=== PATIENT | female | born 1975 | race Hispanic/Latino ===

== ENCOUNTER 2023-04-26 16:44 | Emergency (ER) | payer OTHER ==
[2023-04-26] MEDS ORDERED: ASPIRIN 81 MG CHEWABLE TABLET ONE (17:55)
[2023-04-26] MEDS ORDERED: HYDROCODONE/APAP 5/325 MG TAB ONE (17:55)
--- NOTE | 2023-04-26 19:12 | RAD REPORT ---
EXAM DESCRIPTION: CT - Spine Lumbar Wo Con - 04/26/2023 6:16 pm CLINICAL HISTORY: Radiculopathy. RADICULOPATHY COMPARISON: No comparisons TECHNIQUE: Axial noncontrast CT imaging of the lumbar spine was performed with coronal and sagittal re-formatted images. All CT scans are performed using dose optimization technique as appropriate and may include automated exposure control or mA/KV adjustment according to patient size. FINDINGS: No acute lumbar spine fracture seen. No aggressive marrow pattern or malalignment. Small s clerotic lesions within both iliac wings, not exceeding 1 cm, indeterminate and could represent small bone islands its although possibility of small metastatic lesions cannot be entirely excluded. Paraspinal tissues are normal in thickness. No paraspinal abscess or hematoma seen. Intervertebral disc disease assessment is inherently limited by CT. Within these limitations, no high -grade canal stenosis suspected. Mild bilateral facet degenerative changes. No significant bony beto inal stenosis. Colonic diverticulosis. Status post cholecystectomy. IMPRESSION: No acute osseus abnormality. Small sclerotic lesions within both iliac wings, not exceeding 1 cm, indeterminate and could represen t small bone islands, although possibility of small metastatic lesions cannot be entirely excluded. P lease correlate with prior imaging if available. Incidental findings as above.
--- NOTE | 2023-04-26 19:16 | RAD REPORT ---
EXAM DESCRIPTION: US - Extrem Venous W Compress Anton - 04/26/2023 5:42 pm CLINICAL HISTORY: Pain. Rule out DVT COMPARISON: None. TECHNIQUE: Real-time sonographic evaluation of the bilateral lower extremity deep venous systems was performed. FINDINGS: Normal compressibility, flow augmentation, phasic flow and spontaneous flow is identified in both the left and right lower extremity deep venous systems. No intraluminal filling defects seen. IMPRESSION: No evidence of DVT in either lower extremity.
--- NOTE | 2023-04-26 20:48 | EDPHYS ---
Physician Documentation [facility] Name: Keke Amado Age: 47 yrs Sex: Female : 1975 Arrival Date: 04/26/2023 Time: 16:44 Bed 7 Private MD: ED Physician Paulie Sutherland HPI: 04/26 17:47 This 47 yrs old Female presents to ER via Ambulatory with complaints of Leg snw Pain. 17:47 The patient presents with pain, that is acute. The complaints affect the right snw hamstring and right obando and posterior aspect of right knee. Onset: The symptoms/episode began/occurred 1 month(s) ago, and became worse 1 week(s) ago. Treatment prior to arrival includes: no previous treatment. Severity of symptoms: At their worst the symptoms were moderate, severe. The patient has not experienced similar symptoms in the past. The patient has not recently seen a physician. recent flights, sedentary. Historical: - Allergies: 16:57 No Known Allergies; hb - Home Meds: 16:57 Ozempic subcutaneous [Active]; hb - PMHx: 16:57 None; hb - PSHx: 16:57 Cholecystectomy; Appendectomy; Partial Hysterectomy; hb - Immunization history:: Adult Immunizations up to date. - Social history:: Smoking status: Patient denies any tobacco usage or history of. ROS: 17:30 Constitutional: Negative for fever, chills, and weight loss, Eyes: Negative for injury, snw pain, redness, and discharge, ENT: Negative for injury, pain, and discharge, Neck: Negative for injury, pain, and swelling, Cardiovascular: Negative for chest pain, palpitations, and edema, Respiratory: Negative for shortness of breath, cough, wheezing, and pleuritic chest pain, Abdomen/GI: Negative for abdominal pain, nausea, vomiting, diarrhea, and constipation, Back: Negative for injury and pain, : Negative for injury, bleeding, discharge, and swelling, Neuro: Negative for headache, weakness, numbness, tingling, and seizure, Psych: Negative for depression, anxiety, suicide ideation, homicidal ideation, and hallucinations, 17:30 MS/extremity: Positive for pain, tenderness, Exam: 17:27 Constitutional: This is a well developed, well nourished patient who is awake, alert, snw and in no acute distress. Head/Face: Normocephalic, atraumatic. Eyes: Pupils equal round and reactive to light, extra-ocular motions intact. Lids and lashes normal. Conjunctiva and sclera are non-icteric and not injected. Cornea within normal limits. Periorbital areas with no swelling, redness, or edema. ENT: Nares patent. No nasal discharge, no septal abnormalities noted. Tympanic membranes are normal and external auditory canals are clear. Oropharynx with no redness, swelling, or masses, exudates, or evidence of obstruction, uvula midline. Mucous membranes moist. Neck: Trachea midline, no thyromegaly or masses palpated, and no cervical lymphadenopathy. Supple, full range of motion without nuchal rigidity, or vertebral point tenderness. No Meningismus. Chest/axilla: Normal chest wall appearance and motion. Nontender with no deformity. No lesions are appreciated. Cardiovascular: Regular rate and rhythm with a normal S1 and S2. No gallops, murmurs, or rubs. Normal PMI, no JVD. No pulse deficits. up to bedside and HR up to 108 Respiratory: Lungs have equal breath sounds bilaterally, clear to auscultation and percussion. No rales, rhonchi or wheezes noted. No increased work of breathing, no retractions or nasal flaring. Abdomen/GI: Soft, non-tender, with normal bowel sounds. No distension or tympany. No guarding or rebound. No evidence of tenderness throughout. Back: No spinal tenderness. No costovertebral tenderness. Full range of motion. Neuro: Awake and alert, GCS 15, oriented to person, place, time, and situation. Cranial nerves II-XII grossly intact. Motor strength 5/5 in all extremities. Sensory grossly intact. Cerebellar exam normal. Normal gait. Psych: Awake, alert, with orientation to person, place and time. Behavior, mood, and affect are within normal limits. 17:27 Musculoskeletal/extremity: ROM: intact in all extremities, Circulation is intact in all extremities. hyperesthesias to posterior thigh and medial right ankle 17:27 Skin: Appearance: normal except for affected area, induration, that is mild is noted, that is moderate is noted, located on the right hamstring, posterior aspect of right knee, right obando and anterior aspect of right ankle, Other varicose cords noted, posterior upper thigh with tenderness to palpation, Vital Signs: 16:55 BP 135 / 89; Pulse 93; Resp 16; Temp 98.8(O); Pulse Ox 99% on R/A; Weight 62.14 kg; hb Height 5 ft. 2 in. ; Pain 6/10; 17:43 BP 110 / 81; Pulse 79; Resp 18; Pulse Ox 100% on R/A; Pain 8/10; ld1 18:12 BP 112 / 39; Pulse 75; Resp 18; Pulse Ox 100% on R/A; ld1 19:00 BP 102 / 67; Pulse 71; Resp 16; Pulse Ox 98% ; bp 20:54 BP 108 / 77; Pulse 67; Resp 16; Pulse Ox 100% ; bp 16:55 Body Mass Index 25.06 (62.14 kg, 157.48 cm) hb 16:55 Pain Scale: Adult hb 17:43 Pain Scale: Adult ld1 MDM: 16:59 Patient medically screened. snw 21:42 Differential diagnosis: tendonitis, DVT, lumbar radiculopathy. Data reviewed: vital snw signs, nurses notes, radiologic studies, CT scan, ultrasound. I considered the following discharge prescriptions or medication management in the emergency department Medications were administered in the Emergency Department. See MAR. 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 Counseling: I had a detailed discussion with the patient and/or guardian regarding the historical points, exam findings, and any diagnostic results supporting the discharge/admit diagnosis, radiology results, the need for outpatient follow up, for definitive care, has appt with PCP on 2022, to return to the emergency department if symptoms worsen or persist or if there are any questions or concerns that arise at home. Response to treatment: the patient's symptoms have mildly improved after treatment. Special discussion: Based on the history and exam findings, there is no indication for further emergent testing or inpatient evaluation. I discussed with the patient/guardian the need to see the primary care provider for further evaluation of the symptoms. 04/26 17:16 Order name: Extrem Venous W Compress Anton; Complete Time: 19:19 EDMS 04/26 17:16 Order name: CT Lumbar Spine Wo Con; Complete Time: 19:13 snw Administered Medications: 17:43 Drug: HYDROcodone-acetaminophen PO 5 mg-325 mg 1 tabs PO once Route: PO; ld1 20:55 Follow up: Response: No adverse reaction bp 17:43 Drug: Aspirin PO Chewable Tablet 324 mg PO once; 81 mg tablets x 4 Route: PO; ld1 20:55 Follow up: Response: No adverse reaction bp Disposition Summary: 04/26/23 20:48 Discharge Ordered Condition: Stable snw Diagnosis - Pain in right leg snw - Radiculopathy, lumbar region snw Followup: snw - With: Emergency Department - When: As needed - Reason: Worsening of condition Followup: snw - With: Private Physician - When: 1 week - Reason: Recheck today's complaints, Continuance of care, Re-evaluation by your physician Discharge Instructions: - Discharge Summary Sheet snw - Lumbosacral Radiculopathy snw - Musculoskeletal Pain snw - Neuropathic Pain snw - Radicular Pain snw Forms: - Medication Reconciliation Form snw - Thank You Letter snw - Antibiotic Education snw - Prescription Opioid Use snw - Patient Portal Instructions snw - Leadership Thank You Letter snw Prescriptions: - Pepcid 20 mg Oral Tablet - take 1 tablet ORAL route every 12 hours for 10 days; 20 tablet; Refills: 0, snw Product Selection Permitted - Prednisone 20 mg Oral Tablet - take 2 tablets ORAL route once daily for 5 days; 10 tablet; Refills: 0, Product snw Selection Permitted - orphenadrine citrate 100 mg Oral Tablet Sustained Release - take 1 tablet ORAL route 2 times per day As needed; 20 tablet; Refills: 0, snw Product Selection Permitted Signatures: Dispatcher [employer] EDClara Martinez, FLANGING ROLL OPERATOR-C FLANGING ROLL OPERATOR-Csnw Laurie Mitchell, RN RN Meenu Drake RN RN ld1 Ashok Soliman RN bp Corrections: (The following items were deleted from the chart) 18:14 17:53 Extrem Venous W Compression [id number] ordered. EDMS EDMS
--- NOTE | 2023-04-26 20:48 | ER ---
Nurse's Notes [facility] Name: Keke Aamdo Age: 47 yrs Sex: Female : 1975 Arrival Date: 04/26/2023 Time: 16:44 Bed 7 Private MD: Diagnosis: Pain in right leg;Radiculopathy, lumbar region Presentation: 04/26 16:55 Chief complaint: Worsening right leg pain x 1 month. Pain started in back of thigh, now hb worse behind knee and calf, has been hot to touch intermittently. Frequently travels via airplane for work. Coronavirus screen: At this time, the client does not indicate any symptoms associated with coronavirus-19. Ebola Screen: No symptoms or risks identified at this time. Initial Sepsis Screen: Does the patient meet any 2 criteria? No. Patient's initial sepsis screen is negative. Does the patient have a suspected source of infection? No. Patient's initial sepsis screen is negative. Risk Assessment: Do you want to hurt yourself or someone else? Patient reports no desire to harm self or others. Onset of symptoms was March 2023. 16:55 Method Of Arrival: Ambulatory hb 16:55 Acuity: DANIEL 3 hb Triage Assessment: 19:00 General: Appears in no apparent distress. Behavior is calm, cooperative, appropriate bp for age. Historical: - Allergies: 16:57 No Known Allergies; hb - Home Meds: 16:57 Ozempic subcutaneous [Active]; hb - PMHx: 16:57 None; hb - PSHx: 16:57 Cholecystectomy; Appendectomy; Partial Hysterectomy; hb - Immunization history:: Adult Immunizations up to date. - Social history:: Smoking status: Patient denies any tobacco usage or history of. Screenin:[address] [facility] ED Fall Risk Assessment (Adult) History of falling in the last 3 months, ld1 including since admission No falls in past 3 months (0 pts). Abuse screen: Denies threats or abuse. Denies injuries from another. Nutritional screening: No deficits noted. Tuberculosis screening: No symptoms or risk factors identified. Assessment: 17:43 General: Appears in no apparent distress. comfortable, Behavior is calm, cooperative, ld1 appropriate for age. Pain: Complains of pain in lateral aspect of right thigh and right hamstring Pain does not radiate. Pain currently is 8 out of 10 on a pain scale. Quality of pain is described as sharp, shooting, throbbing, Pain began suddenly, Is continuous. Neuro: Level of Consciousness is awake, alert, obeys commands, Oriented to person, place, time, situation. Cardiovascular: Capillary refill < 3 seconds Patient's skin is warm and dry. Respiratory: Airway is patent Respiratory effort is even, unlabored. GI: Abdomen is flat, non-distended. : No signs and/or symptoms were reported regarding the genitourinary system. EENT: No signs and/or symptoms were reported regarding the EENT system. Derm: No signs and/or symptoms reported regarding the dermatologic system. Musculoskeletal: No signs and/or symptoms reported regarding the musculoskeletal system. 19:00 Reassessment: No changes from previously documented assessment. Patient is alert, bp oriented x 3, equal unlabored respirations, skin warm/dry/pink. Vital Signs: 16:55 BP 135 / 89; Pulse 93; Resp 16; Temp 98.8(O); Pulse Ox 99% on R/A; Weight 62.14 kg; hb Height 5 ft. 2 in. ; Pain 6/10; 17:43 BP 110 / 81; Pulse 79; Resp 18; Pulse Ox 100% on R/A; Pain 8/10; ld1 18:12 BP 112 / 39; Pulse 75; Resp 18; Pulse Ox 100% on R/A; ld1 19:00 BP 102 / 67; Pulse 71; Resp 16; Pulse Ox 98% ; bp 20:54 BP 108 / 77; Pulse 67; Resp 16; Pulse Ox 100% ; bp 16:55 Body Mass Index 25.06 (62.14 kg, 157.48 cm) hb 16:55 Pain Scale: Adult hb 17:43 Pain Scale: Adult ld1 ED Course: 16:48 Patient arrived in ED. mr 16:49 Clara Culp F[facility]-C [facility]. snw 16:49 Paulie Sutherland MD is Attending Physician. snw 16:57 Triage completed. hb 16:58 Arm band placed on. hb 17:43 Extrem Venous W Compress Anton In Process Unspecified. EDMS 17:43 Meenu Drake, NEELA is Primary Nurse. ld1 17:43 Patient has correct armband on for positive identification. Placed in gown. Bed in low ld1 position. Call light in reach. Side rails up X2. clinical research monitor on. Pulse ox on. NIBP on. Door closed. Noise minimized. Warm blanket given. 17:43 No provider procedures requiring assistance completed. ld1 18:16 CT Lumbar Spine Wo Con In Process Unspecified. EDMS 19:05 Primary Nurse role handed off by Meenu Drake, NEELA bp 19:05 Ashok Soliman, RN is Primary Nurse. bp 20:55 Patient did not have IV access during this emergency room visit. bp Administered Medications: 17:43 Drug: HYDROcodone-acetaminophen PO 5 mg-325 mg 1 tabs PO once Route: PO; ld1 20:55 Follow up: Response: No adverse reaction bp 17:43 Drug: Aspirin PO Chewable Tablet 324 mg PO once; 81 mg tablets x 4 Route: PO; ld1 20:55 Follow up: Response: No adverse reaction bp Medication: 17:43 VIS not applicable for this client. ld1 Outcome: 20:48 Discharge ordered by MD. snw 20:55 Discharged to home ambulatory, with family, bp 20:55 Condition: stable 20:55 Discharge instructions given to patient, Instructed on discharge instructions, follow up and referral plans. medication usage, Demonstrated understanding of instructions, follow-up care, medications, Prescriptions given X 3, 20:55 Patient left the ED. bp Signatures: Dispatcher [employer] EDAK Clara Culp, STEAM BONE PRESS TENDER-C STEAM BONE PRESS TENDER-Csnw Petra Andersen, Reg Reg mr MitchellLaurie, RN NEELA Ashok Soliman, NEELA RN bp Meenu Drake, NEELA RN ld1
== END 2023-04-26 20:55 | disposition home or self-care (01) ==
LOC: ER 16:44
DX: M54.16 Radiculopathy, lumbar region (principal)
CPT/HCPCS: 72131; 93970; 99284

== ENCOUNTER 2023-10-14 18:17 | Emergency (ER) | payer OTHER, SELFPAY ==
--- OUTSIDE RECORDS SUMMARY | 2023-10-14 18:20 | XMS REPORT | Continuity of Care Document ---
Author Name Unknown Address [address] [facility]. [address] [facility] Address [address] [facility] 1 [address] [place] [address] Care Team Providers Care Vineyard Supervisor Name Role Phone DARI GAGNON Primary Care Physician Unavailab le Dari Gagnon Attending Clinician Unavailable RADIOLOGY Attending Clinician Unavailable Radiology Attending Clinician Unavailable DARI GAGNON Admitting Clinician Unavailable Payers Payer Name Policy Type Policy Number Effective Date Expirati on Date Source [place] [address] [id number] 2021 00:00:00 [facility] [id number] 2022 00:00:00 Allergies, Adverse Reactions, Alerts Allergy Name Allergy Type Status Severity Reaction(s) Onset Date Inactive Date Treating Clinician Comments Source [id number] Drug allergy Active Unknown [facility] NO KNOWN ALLERGIE S Drug Class Active [facility] Social History Social Habit Start Date Stop Date Quantity Comments Source Sexual orientation U [facility] Sex Assigned At [facility] History of Tobacco Use [facility] Smoking Status Start Date Stop Date Source Tobacco smoking consumption unknown [facility] Never Smoker [facility] Medications Ordered Medication Name Filled Medication Name Start Date Stop Date Current Medication? Ordering Clinician Indication Dosage Frequency Signature (SIG) Comments Components Source Kenalog (Triamcinol one) Kenalog (Triamcinol one) 07-08 00:00: 00 No 40mg [facility] Kenalog (Triamcinol one) Kenalog (Triamcinol one) 07-08 00:00: 00 No 40mg [facility] Kenalog (Triamcinol one) Kenalog (Triamcinol one) 07-08 00:00: 00 No 40mg [facility] Kenalog (Triamcinol one) Kenalog (Triamcinol one) 07-08 00:00: 00 No 40mg [facility] Kenalog (Triamcinol one) Kenalog (Triamcinol one) 07-08 00:00: 00 No 40mg [facility] Ibuprofen 800 MG Ibuprofen 800 MG No TID Ibuprofen 800 MG methylPREDN ISolone 4 MG methylPREDN ISolone 4 MG No QD methylPRED NISolone 4 MG Semaglutide -Weight Management 2.4 MG/0.75ML Semaglutide -Weight Management 2.4 MG/0.75ML No .75{ml} Semaglutid e-Weight Management 2.4 MG/0.75ML Ibuprofen 800 MG Ibuprofen 800 MG No TID Ibuprofen 800 MG methylPREDN ISolone 4 MG methylPREDN ISolone 4 MG No QD methylPRED NISolone 4 MG Semaglutide -Weight Management 2.4 MG/0.75ML Semaglutide -Weight Management 2.4 MG/0.75ML No .75{ml} Semaglutid e-Weight Management 2.4 MG/0.75ML Ibuprofen 800 MG Ibuprofen 800 MG No TID Ibuprofen 800 MG methylPREDN ISolone 4 MG methylPREDN ISolone 4 MG No QD methylPRED NISolone 4 MG Semaglutide -Weight Management 2.4 MG/0.75ML Semaglutide -Weight Management 2.4 MG/0.75ML No .75{ml} Semaglutid e-Weight Management 2.4 MG/0.75ML Ibuprofen 800 MG Ibuprofen 800 MG No TID Ibuprofen 800 MG methylPREDN ISolone 4 MG methylPREDN ISolone 4 MG No QD methylPRED NISolone 4 MG Semaglutide -Weight Management 2.4 MG/0.75ML Semaglutide -Weight Management 2.4 MG/0.75ML No .75{ml} Semaglutid e-Weight Management 2.4 MG/0.75ML Ibuprofen 800 MG Ibuprofen 800 MG No TID Ibuprofen 800 MG methylPREDN ISolone 4 MG methylPREDN ISolone 4 MG No QD methylPRED NISolone 4 MG Semaglutide -Weight Management 2.4 MG/0.75ML Semaglutide -Weight Management 2.4 MG/0.75ML No .75{ml} Semaglutid e-Weight Management 2.4 MG/0.75ML Immunizations Ordered Immunization Name Filled Immunization Name Date Status Comments Source Fluarix (IIV4) - SDS - 0.5mL Fluarix (IIV4) - SDS - 0.5mL Unknown Completed [facility] Fluarix (IIV4) - SDS - 0.5mL Fluarix (IIV4) - SDS - 0.5mL Unknown Completed [facility] Fluarix (IIV4) - SDS - 0.5mL Fluarix (IIV4) - SDS - 0.5mL Unknown Completed [facility] Fluarix (IIV4) - SDS - 0.5mL Fluarix (IIV4) - SDS - 0.5mL Unknown Completed [facility] Fluarix (IIV4) - SDS - 0.5mL Fluarix (IIV4) - SDS - 0.5mL Unknown Completed [facility] Vital Signs Vital Name Observation Time Observation Value Comments S bijuruby height 2023-07-08 10:40:00 62 [in_i] Commo n [facility] weight 2023-07-08 10:40:00 130 [lb_av] Comm on [facility] temperature 2023-07-08 10:40:00 97.3 [degF] Com mon [facility] bmi 2023-07-08 10:40:00 23.77 kg/m2 Comm on [facility] oximetry 2023-07-08 10:40:00 98 % Commo n [facility] respiratory rate 2023-07-08 10:40:00 16 /min Common [facility] blood pressure systolic 2023-07-08 10:40:00 122 mm[Hg] [facility] blood pressure diastolic 2023-07-08 10:40:00 74 mm[Hg] [facility] height 2023-05-27 10:40:00 62 [in_i] Commo n [facility] weight 2023-05-27 10:40:00 133.2 [lb_av] Co mmon [facility] temperature 2023-05-27 10:40:00 97.3 [degF] Com [facility] bmi 2023-05-27 10:40:00 24.36 kg/m2 Comm on [facility] oximetry 2023-05-27 10:40:00 99 % Commo n [facility] respiratory rate 2023-05-27 10:40:00 16 /min [facility] blood pressure systolic 2023-05-27 10:40:00 134 mm[Hg] [facility] blood pressure diastolic 2023-05-27 10:40:00 78 mm[Hg] Common [facility] height 2023-05-07 09:20:00 62 [in_i] Commo n [facility] weight 2023-05-07 09:20:00 136.4 [lb_av] Co mmon [facility] temperature 2023-05-07 09:20:00 97.9 [degF] Com [facility] bmi 2023-05-07 09:20:00 24.95 kg/m2 Comm on [facility] oximetry 2023-05-07 09:20:00 98 % Commo n [facility] respiratory rate 2023-05-07 09:20:00 16 /min [facility] blood pressure systolic 2023-05-07 09:20:00 113 mm[Hg] [facility] blood pressure diastolic 2023-05-07 09:20:00 73 mm[Hg] [facility] Procedures Procedure Date / Time Performed Performing Clinicia n Source MR LUMBAR SPINE WO CONTRAST 2023-07-08 22:29:27 Requisition, Paper [facility] Encounters Start Date/Time End Date/Time Encounter Type Admission Type Attending Clinicians Care Facility Care Department Encounter ID Source 2023-09-24 07:39:00 Outpatient GagnonDari herrera [facility] [id number] [facility] 2023-07-08 10:26:00 Outpatient Dari Gagnon [facility] [id number] [facility] 2023-06-03 07:50:00 Outpatient GagnonDari herrera [facility] [id number] [facility] 2023-05-23 08:59:00 Outpatient GagnonDari herrera [facility] [id number] [facility] 2023-05-07 09:03:01 Outpatient Dari Gagnon [facility] [id number] [facility] 2023-09-08 00:00:00 2023-09-08 00:00:00 (TEL) [facility] [id number] [facility] 2023-07-23 00:00:00 2023-07-23 00:00:00 (TEL) [facility] [id number] [facility] 2023-07-08 15:49:05 2023-07-08 23:59:00 Outpatient R RADIOLOGY [facility] [id number] [facility] 2023-07-08 15:49:05 2023-07-08 23:59:00 Hospital Encounter Radiology [facility] [id number] [facility] 2023-07-08 00:00:00 2023-07-08 00:00:00 OFFICE VISIT ESTAB PT LEVEL 3 [facility] [id number] [facility] 2023-05-27 00:00:00 2023-05-27 00:00:00 OFFICE VISIT ESTAB PT LEVEL 4 [facility] [id number] [facility] 2023-05-07 00:00:00 2023-05-07 00:00:00 OFFICE VISIT NEW PT LEVEL 4 [facility] [id number] [facility] Results Test Description Test Time Test Comments Results Result Comments Source MR LUMBAR SPINE WO CONTRAST 23:12:39 EXAM: MR LUMBAR SPINE WO CONTRAST HISTORY: History obtained from EPIC: "Radiculopathy, unspecified spinalregion " COMPARISON: None TECHNIQUE: Multiplanar and multisequence MRI imaging of the lumbar spinewas obtained without contrast. FINDINGS: Normal lumbar lordosis is preserved. The vertebral bodies are normal inheight and in normal alignment. The conus medullaris terminates at the level of T12-L1. The cauda equinanerve roots are unremarkable. Mild disc desiccation at L4-L5. Modic type I endplate degeneration atL4-L5. The background marrow signal is unremarkable. Scattered intraosseoushemangiomas . L1-L2: No significant spinal canal stenosis or neural foraminal narrowingis present. L2-L3: No significant spinal canal stenosis or neural foraminal narrowingis present.. L3-L4: No significant spinal canal stenosis or neural foraminal narrowingis present.. L4-L5: Diffuse disc bulge with bilateral facet arthrosis results in mildbilateral neural foraminal narrowing without significant spinal canalstenosis. Right foraminal and extraforaminal annular fissure is noted(series #3 image #4 and series #6 image #18). L5-S1: Mild bilateral facet arthrosis. No significant spinal canal stenosisor neural foraminal narrowing is present.. [facility] SEDIMENTATION [id number] 00:00:00* Test Item Value Reference Range Interpretation Comme nts SEDIMENTATION RATE (test code = 4537-7) 25 MM/HOUR See_Comment H [Automated message] The system which generated this result transmitted reference range: 0-20 MM/HOUR. The reference range was not used to interpret this result as normal/abnormal. URIC [id number] 00:00:00* Test Item Value Reference Range Interpretation Comme [facility] URIC ACID (test code = 2501-5) 3.3 MG/DL See_Comment [Automated messa ge] The system which generated this result transmitted reference range: 2.7-6.1 MG/DL. The reference range was not used to interpret this result as normal/abnormal. C-REACTIVE [id number] 00:00:00* Test Item Value Reference Range Interpretation Comme [facility] C-REACTIVE PROTEIN (test code = 1988-5) 0.3 MG/DL See_Comment [Automated message] The system which generated this result transmitted reference range: <0.5 MG/DL. The reference range was not used to interpret this result as normal/abnormal. COMPREHENSIVE METABOLIC [id number] 00:00:00* Test Item Value Reference Range Interpretation Comme [facility] ALBUMIN (test code = 1751-7) 4.3 G/DL See_Comment [Automated messa ge] The system which generated this result transmitted reference range: 3.5-5.2 G/DL. The reference range was not used to interpret this result as normal/abnormal. ALKALINE PHOSPHATASE (test code = 6768-6) 64 U/L See_Comment [Automated message] The system which generated this result transmitted reference range: 40-120 U/L. The reference range was not used to interpret this result as normal/abnormal. BILIRUBIN, TOTAL (test code = 1975-2) 0.4 MG/DL See_Comment [Automated message] The system which generated this result transmitted reference range: <=1.2 MG/DL. The reference range was not used to interpret this result as normal/abnormal. BUN (test code = 3094-0) 16 MG/DL See_Comment [Automated messa ge] The system which generated this result transmitted reference range: 6-20 MG/DL. The reference range was not used to interpret this result as normal/abnormal. CALCIUM (test code = 96995-8) 9.4 MG/DL See_Comment [Automated messa ge] The system which generated this result transmitted reference range: 8.5-10.5 MG/DL. The reference range was not used to interpret this result as normal/abnormal. CALC A/G RATIO (test code = 1759-0) 1.6 RATIO See_Comment [Automated messa ge] The system which generated this result transmitted reference range: 1.0-2.6 RATIO. The reference range was not used to interpret this result as normal/abnormal. CALC BUN/CREAT (test code = 3097-3) 20 RATIO See_Comment [Automated messa ge] The system which generated this result transmitted reference range: 6-28 RATIO. The reference range was not used to interpret this result as normal/abnormal. CALC GLOBULIN (test code = 03681-9) 2.7 G/DL See_Comment [Automated messa ge] The system which generated this result transmitted reference range: 1.9-3.7 G/DL. The reference range was not used to interpret this result as normal/abnormal. CARBON DIOXIDE (test code = 1963-8) 25 MEQ/L See_Comment [Automated messa ge] The system which generated this result transmitted reference range: 19-31 MEQ/L. The reference range was not used to interpret this result as normal/abnormal. CHLORIDE (test code = 2075-0) 105 MEQ/L See_Comment [Automated messa ge] The system which generated this result transmitted reference range: 95-107 MEQ/L. The reference range was not used to interpret this result as normal/abnormal. CREATININE (test code = 2160-0) 0.80 MG/DL See_Comment [Automated messa ge] The system which generated this result transmitted reference range: 0.60-1.30 MG/DL. The reference range was not used to interpret this result as normal/abnormal. eGFR (2020 CKD-EPI) (test code = 11311-0) 91 ML/MIN/1.73 See_Comment [Automated messa ge] The system which generated this result transmitted reference range: >60 ML/MIN/1.73. The reference range was not used to interpret this result as normal/abnormal. GLUCOSE (test code = 1558-6) 90 MG/DL See_Comment [Automated messa ge] The system which generated this result transmitted reference range: 70-99 MG/DL. The reference range was not used to interpret this result as normal/abnormal. POTASSIUM (test code = 2823-3) 4.2 MEQ/L See_Comment [Automated messa ge] The system which generated this result transmitted reference range: 3.5-5.4 MEQ/L. The reference range was not used to interpret this result as normal/abnormal. PROTEIN, TOTAL (test code = 2885-2) 7.0 G/DL See_Comment [Automated messa ge] The system which generated this result transmitted reference range: 6.1-8.3 G/DL. The reference range was not used to interpret this result as normal/abnormal. AST (test code = 1920-8) 13 U/L See_Comment [Automated messa ge] The system which generated this result transmitted reference range: 9-40 U/L. The reference range was not used to interpret this result as normal/abnormal. ALT (test code = 1742-6) 8 U/L See_Comment [Automated messa ge] The system which generated this result transmitted reference range: 5-40 U/L. The reference range was not used to interpret this result as normal/abnormal. SODIUM (test code = 2951-2) 143 MEQ/L See_Comment [Automated messa ge] The system which generated this result transmitted reference range: 133-146 MEQ/L. The reference range was not used to interpret this result as normal/abnormal.
[2023-10-14] MEDS ORDERED: NA CHLORIDE 0.9% 1,000 ML ONE (18:39)
[2023-10-14] MEDS ORDERED: METHYLPREDNISOLONE 125 MG INJ ONE (18:39)
[2023-10-14] MEDS ORDERED: FAMOTIDINE 20 MG/2 ML VIAL IV ONE (18:39)
[2023-10-14] MEDS ORDERED: DIPHENHYDRAMINE 50 MG/ML VIAL ONE (18:39)
--- NOTE | 2023-10-14 20:50 | ER ---
Nurse's Notes [facility] Name: Keke Amado Age: 47 yrs Sex: Female : 1975 Arrival Date: 10/14/2023 Time: 18:17 Bed IW10 Private MD: Diagnosis: Allergic urticaria Presentation: 10/13 18:35 Chief complaint: Patient states: swelling and hives that started yesterday. pt used as6 epipen yesterday but symptoms are back today. Coronavirus screen: At this time, the client does not indicate any symptoms associated with coronavirus-19. Ebola Screen: No symptoms or risks identified at this time. Initial Sepsis Screen: Does the patient meet any 2 criteria? No. Patient's initial sepsis screen is negative. Does the patient have a suspected source of infection? No. Patient's initial sepsis screen is negative. Risk Assessment: Do you want to hurt yourself or someone else? Patient reports no desire to harm self or others. Onset of symptoms was October 14, 2023. 18:35 Acuity: DANIEL 3 as6 18:35 Method Of Arrival: Ambulatory as6 19:15 Onset: The symptoms/episode began/occurred yesterday. Anaphylaxis evaluation, no signs jw7 or symptoms of anaphylaxis were noted. INSTRUMENT PROCESSING TECH: 18:36 LMP N/A - Hysterectomy, Not as6 Historical: - Allergies: 18:35 No Known Allergies; as6 - PMHx: 18:35 None; as6 - PSHx: 18:35 partial hysterectomy; Cholecystectomy; Appendectomy; as6 - Immunization history:: Adult Immunizations up to date. - Infectious Disease History:: Denies. - Social history:: Smoking status: Patient denies any tobacco usage or history of. Screenin:45 [facility] ED Fall Risk Assessment (Adult) History of falling in the last 3 months, ko1 including since admission No falls in past 3 months (0 pts) Confusion or Disorientation No (0 pts) Intoxicated or Sedated No (0 pts) Impaired Gait No (0 pts) Mobility Assist Device Used No (0 pt) Altered Elimination No (0 pt) Score/Fall Risk Level 0 - 2 = Low Risk Oriented to surroundings, Maintained a safe environment, Educated pt \T\ family on fall prevention, incl call for assistance when getting out of bed, Assessed \T\ reinforced patient's understanding of fall precautions, Provided non-skid footwear, Hourly rounding (assess needs \T\ fall precautionary measures) done, Used ambulatory aids as needed (educated on \T\ assisted with), Used gait belt as appropriate. Abuse screen: Denies threats or abuse. Denies injuries from another. Nutritional screening: No deficits noted. Tuberculosis screening: No symptoms or risk factors identified. Assessment: 18:45 General: Appears in no apparent distress. Behavior is cooperative, appropriate for age, ko1 anxious. Pain: Denies pain. Neuro: No deficits noted. Cardiovascular: No deficits noted. Respiratory: Airway is patent Respiratory effort is even, unlabored, Breath sounds are clear bilaterally. GI: No deficits noted. : No deficits noted. EENT: No deficits noted. Derm: No deficits noted. Musculoskeletal: Swelling present in lips and face. 19:00 General: Appears in no apparent distress. comfortable, Behavior is calm, cooperative. jw7 19:00 Pain: Denies pain. Neuro: Level of Consciousness is awake, alert, obeys commands, jw7 Oriented to person, place, time, situation. Cardiovascular: Heart tones S1 S2 present Capillary refill < 3 seconds Clubbing of nail beds is absent JVD is absent Patient's skin is warm and dry. Respiratory: Airway is patent Trachea midline Respiratory effort is even, unlabored, Respiratory pattern is regular, symmetrical, Breath sounds are clear bilaterally. GI: Abdomen is flat, non-distended, Bowel sounds present X 4 quads. Abd is soft and non tender X 4 quads. : No deficits noted. No signs and/or symptoms were reported regarding the genitourinary system. EENT: No deficits noted. No signs and/or symptoms were reported regarding the EENT system. Derm: Skin is intact, is healthy with good turgor, Skin is dry, Skin is normal, Skin temperature is warm. Musculoskeletal: Circulation, motion, and sensation intact. Range of motion: intact in all extremities, Swelling present in Lip and Face. 20:00 Reassessment: Patient appears in no apparent distress at this time. No changes from jw7 previously documented assessment. Patient and/or family updated on plan of care and expected duration. Pain level reassessed. Patient is alert, oriented x 3, equal unlabored respirations, skin warm/dry/pink. 21:00 Reassessment: Patient appears in no apparent distress at this time. No changes from jw7 previously documented assessment. Patient and/or family updated on plan of care and expected duration. Pain level reassessed. Patient is alert, oriented x 3, equal unlabored respirations, skin warm/dry/pink. Vital Signs: 18:34 BP 124 / 78; Pulse 86; Resp 18 S; Temp 97.7(TE); Pulse Ox 99% on R/A; Weight 58.06 kg as6 (R); Height 5 ft. 3 in. (R); Pain 0/10; 19:00 BP 120 / 77; Pulse 77; Resp 17 S; Pulse Ox 100% on R/A; jw7 20:00 BP 107 / 75; Pulse 73; Resp 16 S; Pulse Ox 98% on R/A; jw7 21:00 BP 126 / 86; Pulse 84; Resp 16 S; Pulse Ox 99% on R/A; jw7 18:34 Body Mass Index 22.67 (58.06 kg, 160.02 cm) as6 18:34 Pain Scale: Adult as6 ED Course: 18:19 Patient arrived in ED. rg4 18:20 Farzana Verdugo FNP-C is PHCP. kb 18:21 uEgenie Mi is Attending Physician. kb 18:36 Triage completed. as6 18:36 Arm band placed on. as6 18:45 Patient has correct armband on for positive identification. Bed in low position. Call ko1 light in reach. Pulse ox on. NIBP on. Door closed. Noise minimized. 18:45 Inserted saline lock: 22 gauge in right antecubital area, using aseptic technique. ko1 19:00 Renetta Uriarte, RN is Primary Nurse. ko1 19:00 Report received from NEELA Jackson. jw7 19:46 Primary Nurse role handed off by Renetta Uriarte, NEELA as6 20:30 Warm blanket given. jw7 21:00 Provided Education on: Proper use of EPI PEN. jw7 21:00 No provider procedures requiring assistance completed. IV discontinued, intact, jw7 bleeding controlled, No redness/swelling at site. Pressure dressing applied. Administered Medications: 18:55 Drug: NS 0.9% IV 1000 ml IV at 1000 ml once Route: IV; Rate: 1000 ml; Site: right ko1 antecubital; 10/14 01:48 Follow up: Response: No adverse reaction; IV Status: Completed infusion; IV Intake: jw7 1000ml 10/13 18:55 Drug: MethylPrednisoLONE IVP 125 mg IVP once Route: IVP; Site: right antecubital; ko1 10/14 01:48 Follow up: Response: No adverse reaction; Marked relief of symptoms jw7 10/13 18:55 Drug: Famotidine IVP 20 mg IVP once; dilute with 10 mL 0.9% NaCl; give over 2 minutes ko1 Route: IVP; Site: right antecubital; 10/14 01:48 Follow up: Response: No adverse reaction; Marked relief of symptoms jw7 10/13 18:55 Drug: diphenhydrAMINE IVP 25 mg IVP once Route: IVP; Site: right antecubital; ko1 10/14 01:48 Follow up: Response: No adverse reaction; Marked relief of symptoms jw7 Medication: 10/13 21:00 VIS not applicable for this client. jw7 Intake: 10/14 01:48 IV: 1000ml; Total: 1000ml. jw7 Outcome: 10/13 20:49 Discharge ordered by MD. miller 21:00 Discharged to home ambulatory, jw7 21:00 Condition: stable 21:00 Discharge instructions given to patient, Instructed on discharge instructions, follow up and referral plans. medication usage, Demonstrated understanding of instructions, follow-up care, medications, Prescriptions given X 1, 21:38 Patient left the ED. cm10 Signatures: Farzana Verdugo FNP-C FNP-Lenora Denton4 Gary Benoit RN RN as6 Kathy Caldera RN RN jw7 Renetta Uriarte RN RN ko1 Qiana Ivey RN RN cm10
--- NOTE | 2023-10-14 20:50 | EDPHYS ---
Physician Documentation [facility] Name: Keke Amado Age: 47 yrs Sex: Female : 1975 Arrival Date: 10/14/2023 Time: 18:17 Bed IW10 Private MD: ED Physician Eugenie Mi HPI: 10/13 21:56 This 47 yrs old Female presents to ER via Ambulatory with complaints of kb Allergic Reaction. 21:56 Pt is a 47 year old female who presents for hives and swelling to lip that started last kb night, but went away after she took her epipen. States symptoms returned at 1700 today so she came in. Denies shortness of breath. States she is under the care of a director of sales because this has been happening spontaneously since May and they believe it is autoimmune. . 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 - Infectious Disease History:: Denies. - Social history:: Smoking status: Patient denies any tobacco usage or history of. ROS: 21:29 Constitutional: As per HPI kb Exam: 21:29 Constitutional: This is a well developed, well nourished patient who is awake, alert, kb and in no acute distress. Head/Face: Normocephalic, atraumatic. ENT: Moist Mucous membranes Cardiovascular: Regular rate Respiratory: Respirations even and unlabored. No increased work of breathing. Talking in full sentences Abdomen/GI: Soft, non-tender. No distention MS/ Extremity: Pulses equal, no cyanosis. Neurovascular intact. Full, normal range of motion. Neuro: Awake and alert, GCS 15, oriented to person, place, time, and situation. Moves all extremities. Normal gait. 21:29 ENT: Mouth: Lips: upper lip, swelling, 21:29 Skin: rash a moderate rash is noted, consistent with urticaria, and is diffusely located, Vital Signs: 18:34 BP 124 / 78; Pulse 86; Resp 18 S; Temp 97.7(TE); Pulse Ox 99% on R/A; Weight 58.06 kg as6 (R); Height 5 ft. 3 in. (R); Pain 0/10; 19:00 BP 120 / 77; Pulse 77; Resp 17 S; Pulse Ox 100% on R/A; jw7 20:00 BP 107 / 75; Pulse 73; Resp 16 S; Pulse Ox 98% on R/A; jw7 21:00 BP 126 / 86; Pulse 84; Resp 16 S; Pulse Ox 99% on R/A; jw7 18:34 Body Mass Index 22.67 (58.06 kg, 160.02 cm) as6 18:34 Pain Scale: Adult as6 MDM: 18:21 Patient medically screened. kb 21:30 Differential diagnosis: anaphylaxis, angioedema, urticaria. Data reviewed: vital signs, kb nurses notes. Consideration of Admission/Observation Escalation of care including admission/observation considered. admission considered, but pt is doing better after treatment, has no resp distress. Pt will call director of sales in the morning for further treatment. Management of patient was discussed with the following: Dr Kinsey. Counseling: I had a detailed discussion with the patient and/or guardian regarding the historical points, exam findings, and any diagnostic results supporting the discharge/admit diagnosis, the need for outpatient follow up, a family practitioner, to return to the emergency department if symptoms worsen or persist or if there are any questions or concerns that arise at home. 10/13 18:34 Order name: IV Start; Complete Time: 18:55 kb Administered Medications: 18:55 Drug: NS 0.9% IV 1000 ml IV at 1000 ml once Route: IV; Rate: 1000 ml; Site: right ko1 antecubital; 10/14 01:48 Follow up: Response: No adverse reaction; IV Status: Completed infusion; IV Intake: jw7 1000ml 10/13 18:55 Drug: MethylPrednisoLONE IVP 125 mg IVP once Route: IVP; Site: right antecubital; ko1 10/14 01:48 Follow up: Response: No adverse reaction; Marked relief of symptoms jw7 10/13 18:55 Drug: Famotidine IVP 20 mg IVP once; dilute with 10 mL 0.9% NaCl; give over 2 minutes ko1 Route: IVP; Site: right antecubital; 10/14 01:48 Follow up: Response: No adverse reaction; Marked relief of symptoms jw7 10/13 18:55 Drug: diphenhydrAMINE IVP 25 mg IVP once Route: IVP; Site: right antecubital; ko1 10/14 01:48 Follow up: Response: No adverse reaction; Marked relief of symptoms jw7 Disposition: 17:24 Co-signature as Attending Physician, Eugenie Mi I agree with the assessment ci and plan of care. I reviewed the patient's care provided by the Advanced Practice Provider and agree with the diagnosis and treatment plan. Disposition Summary: 10/14/23 20:49 Discharge Ordered Notes: Location: Home kb Condition: Stable kb Diagnosis - Allergic urticaria kb Followup: kb - With: Emergency Department - When: As needed - Reason: Worsening of condition Followup: kb - With: Private Physician - When: 2 - 3 days - Reason: Recheck today's complaints, Continuance of care, Re-evaluation by your physician Discharge Instructions: - Discharge Summary Sheet kb - Hives, [id number] kb Forms: - Medication Reconciliation Form kb - Thank You Letter kb - Antibiotic Education kb - Prescription Opioid Use kb - Patient Portal Instructions kb - Leadership Thank You Letter kb Prescriptions: - EpiPen 0.3 mg/0.3 mL Injection Auto-Injector - administer 0.3 milligram INTRAMUSCULAR route once As needed as a single dose; kb may repeat once; 2 unit; Refills: 0, Product Selection Permitted Signatures: Farzana Verdugo FNP-C FNP-Ckb Slawson, Ashby, RN RN as6 Renetta Uriarte RN RN ko1 Eugenie Mi Jodi RN jw7
[2023-10-14 22:16] VITALS: BP 124/78; TEMP 97.7; O2SAT 99
== END 2023-10-14 21:38 | disposition home or self-care (01) ==
LOC: ER 18:17
DX: L50.0 Allergic urticaria (principal)
CPT/HCPCS: J1200; J2930; J7030